=== PATIENT | male | born 1985 | race African-American/Black ===

== ENCOUNTER 2023-06-30 12:31 | Inpatient (IN) | payer OTHER ==
[2023-06-30 13:51] VITALS: BMI 24.0
[2023-06-30] MEDS ORDERED: LOPERAMIDE HCL 2 MG CAPSULE PO PRN (15:00)
[2023-06-30] MEDS ORDERED: IBUPROFEN 400 MG TABLET (FP) PO PRN (15:00)
[2023-06-30] MEDS ORDERED: BENZONATATE 200 MG CAPSULE PO PRN (15:00)
[2023-06-30] MEDS ORDERED: guaiFENesin 600 MG TABLET.ER (FP) PO PRN (15:00)
[2023-06-30] MEDS ORDERED: ACETAMINOPHEN 325 MG TABLET (FP) PO PRN (15:00)
[2023-06-30] MEDS ORDERED: NALOXONE HCL (KLOXXADO) 8 MG SPRAY NS PRN (15:00)
[2023-06-30] MEDS ORDERED: BENZOCAINE/MENTHOL (CHLORASEPTIC ) LOZENGE MM PRN (15:00)
[2023-06-30] MEDS ORDERED: POLYETHYLENE GLYCOL (HEALTHYLAX) 3350 17 GM PACKET PO PRN (15:00)
[2023-06-30] MEDS ORDERED: IBUPROFEN 600 MG TABLET (FP) PO PRN (15:00)
[2023-06-30] MEDS ORDERED: NALOXONE HCL 0.4 MG/ML VIAL IM PRN (15:00)
[2023-06-30] MEDS ORDERED: MAGNESIUM HYDROX 2400MG/30ML ORAL SUSPENSION 30 ML CUP PO PRN (15:00)
[2023-06-30] MEDS ORDERED: MAG HYDROX/AL HYDROX/SIMETH 30 ML UNIT-DOSE CUP PO PRN (15:00)
[2023-06-30] MEDS ORDERED: hydrOXYzine PAMOATE 25 MG CAPSULE (FP) PO PRN (15:00)
[2023-06-30] MEDS: PRENATAL VITAMINS W/ FOLIC ACID TABLET (FP) PO SCH (16:20)
[2023-06-30] MEDS: NICOTINE 7 MG/24 HOURS TOPICAL PATCH TD SCH (16:20)
[2023-06-30] MEDS ORDERED: NICOTINE 7 MG/24 HOURS TOPICAL PATCH TD ONE (16:31)
[2023-06-30 17:00] VITALS: TEMP 97.9
[2023-06-30] MEDS: TUBERCULIN PPD 5 TU/0.1ML SYRINGE (IN PATIENT USE ONLY) ID ONE (18:27)
[2023-06-30] MEDS: MELATONIN 5 MG TABLETS PO SCH (21:21)
[2023-06-30] MEDS: THIAMINE HCL 100 MG TABLET (FP) PO SCH (21:21)
[2023-06-30] MEDS ORDERED: TUBERCULIN PPD 5 TU/0.1ML VIAL ID ONE (22:51)
[2023-07-01 08:48] VITALS: RESP 16
[2023-07-01 11:50] LABS: URINE APPEARANCE CLEAR; URINE BILIRUBIN NEGATIVE (NEGATIVE); URINE COLOR YELLOW; URINE GLUCOSE (UA) NEGATIVE (NEGATIVE); URINE KETONE NEGATIVE (NEGATIVE); URINE LEUK ESTERASE NEGATIVE (NEGATIVE); URINE NITRITE NEGATIVE (NEGATIVE); URINE PROTEIN NEGATIVE (NEGATIVE); URINE UROBILINOGEN 0.2 mg/dL (0.2-1.0)
[2023-07-01 11:55] LABS: HEMATOCRIT 38.3 % (35.4-49); MCH 24.4 pg (25.7-33.7); MCHC 31.3 g/dl (32.0-35.9); MEAN CELL VOLUME 77.9 fl (80-96); PLATELET COUNT 272 10^3/uL (134-434); RBC 4.92 M/mm3 (4.00-5.60); RDW 14.1 % (11.9-15.9); WHITE BLOOD COUNT 5.1 K/mm3 (4.0-10.0)
[2023-07-01 11:59] LABS: POTASSIUM 4.1 mmol/L (3.5-5.1)
[2023-07-01 12:05] LABS: ALBUMIN 2.6 g/dl (3.4-5.0); BLOOD UREA NITROGEN 12.2 mg/dL (7-18); CALCIUM 8.2 mg/dL (8.5-10.1)
[2023-07-01 12:10] LABS: BILIRUBIN,TOTAL 0.5 mg/dL (0.2-1); TOT PROT 6.2 g/dl (6.4-8.2)
[2023-07-01 12:27] LABS: SYPHILIS W/ RPR CONF NON-REACTIVE (NONREACTIVE)
[2023-07-01 15:22] LABS: HIV INTERPRETATION NEGATIVE (NEGATIVE)
[2023-07-01] MEDS: QUEtiapine FUMARATE 100 MG TABLET (FP) PO SCH (21:24)
[2023-07-02] MEDS ORDERED: PRENATAL VITAMINS W/ FOLIC ACID TABLET (FP) PO PRN (12:58)
[2023-07-02] MEDS ORDERED: NICOTINE 7 MG/24 HOURS TOPICAL PATCH TD PRN (12:58)
[2023-07-03 09:12] VITALS: BP 126/89; PULSE 71
== END 2023-07-03 12:30 | disposition left against medical advice (07) | DRG 770 ==
LOC: YASAS 12:31 → Y3E 16:04
PROVIDERS: ADMIT Allergy & Immunology; ATTEND Psychiatry & Neurology Pain Medicine
PROC: HZ42ZZZ Group Counseling for Substance Abuse Treatment, Cognitive-Behavioral (ICD-10-PCS; principal; 2023-06-30)
DX: F11.20 Opioid dependence, uncomplicated (principal); F14.20 Cocaine dependence, uncomplicated; F16.24 Hallucinogen dependence with hallucinogen-induced mood disorder; F12.20 Cannabis dependence, uncomplicated; F17.210 Nicotine dependence, cigarettes, uncomplicated; F19.24 Other psychoactive substance dependence with psychoactive substance-induced mood disorder; F43.10 Post-traumatic stress disorder, unspecified; Z56.0 Unemployment, unspecified; Z59.01 Sheltered homelessness
CPT/HCPCS: 36415; 80053; 81003; 85027; 86780; 86803; 87389; 87811; 93005; 93010

== ENCOUNTER 2023-07-22 15:31 | Inpatient (IN) | payer OTHER ==
[2023-07-22 17:29] VITALS: BMI 22.8
[2023-07-22] MEDS ORDERED: IBUPROFEN 400 MG TABLET (FP) PO PRN (21:33)
[2023-07-22] MEDS ORDERED: BENZOCAINE/MENTHOL (CHLORASEPTIC ) LOZENGE MM PRN (21:33)
[2023-07-22] MEDS ORDERED: MAGNESIUM HYDROX 2400MG/30ML ORAL SUSPENSION 30 ML CUP PO PRN (21:33)
[2023-07-22] MEDS ORDERED: MAG HYDROX/AL HYDROX/SIMETH 30 ML UNIT-DOSE CUP PO PRN (21:33)
[2023-07-22] MEDS ORDERED: ACETAMINOPHEN 325 MG TABLET (FP) PO PRN (21:33)
[2023-07-22] MEDS ORDERED: IBUPROFEN 600 MG TABLET (FP) PO PRN (21:33)
[2023-07-22] MEDS ORDERED: NICOTINE POLACRILEX 4 MG GUM BUC PRN (21:33)
[2023-07-22] MEDS ORDERED: NALOXONE HCL 0.4 MG/ML VIAL IM PRN (21:33)
[2023-07-22] MEDS ORDERED: NALOXONE HCL (KLOXXADO) 8 MG SPRAY NS PRN (21:33)
[2023-07-22] MEDS ORDERED: BENZONATATE 200 MG CAPSULE PO PRN (21:33)
[2023-07-22] MEDS ORDERED: LOPERAMIDE HCL 2 MG CAPSULE PO PRN (21:33)
[2023-07-22] MEDS ORDERED: guaiFENesin 600 MG TABLET.ER (FP) PO PRN (21:33)
[2023-07-22] MEDS ORDERED: POLYETHYLENE GLYCOL (HEALTHYLAX) 3350 17 GM PACKET PO PRN (21:33)
[2023-07-22] MEDS: THIAMINE 100 MG TABLET PO SCH (22:27)
[2023-07-22] MEDS: MELATONIN 5 MG TABLETS PO SCH (22:27)
[2023-07-23] MEDS ORDERED: TUBERCULIN PPD 5 TU/0.1ML SYRINGE (IN PATIENT USE ONLY) ID ONE (01:34)
[2023-07-23] MEDS: TUBERCULIN PPD 5 TU/0.1ML SYRINGE (IN PATIENT USE ONLY) ID ONE (10:30)
[2023-07-23] MEDS: PRENATAL VITAMINS W/ FOLIC ACID TABLET (FP) PO SCH (10:30)
[2023-07-23] MEDS: NICOTINE 21 MG/24 HOURS TOPICAL PATCH TD SCH (10:31)
[2023-07-23 11:37] LABS: HEMATOCRIT 38.2 % (35.4-49); HEMOGLOBIN 12.2 GM/dL (11.7-16.9); MCH 24.8 pg (25.7-33.7); MCHC 32.1 g/dl (32.0-35.9); MEAN CELL VOLUME 77.5 fl (80-96); MEAN PLT VOLUME 8.8 fl (7.5-11.1); PLATELET COUNT 263 10^3/uL (134-434); RBC 4.93 M/mm3 (4.00-5.60); RDW 14.7 % (11.9-15.9); WHITE BLOOD COUNT 3.7 K/mm3 (4.0-10.0)
[2023-07-23 12:49] LABS: CHLORIDE 110 mmol/L (98-107); POTASSIUM 4.1 mmol/L (3.5-5.1); SODIUM 145 mmol/L (136-145)
[2023-07-23 12:51] LABS: ANION GAP 7 mmol/L (4-13); BLOOD UREA NITROGEN 11.2 mg/dL (7-18); CALCIUM 8.5 mg/dL (8.5-10.1); CO2 28 mmol/L (21-32)
[2023-07-23 12:52] LABS: ALBUMIN 2.8 g/dl (3.4-5.0); GLUCOSE,RANDOM 91 mg/dL (74-106)
[2023-07-23 12:54] LABS: SGPT/ALT 42 U/L (13-61)
[2023-07-23 12:55] LABS: CREATININE 0.9 mg/dL (0.55-1.3); SGOT/AST 86 U/L (15-37)
[2023-07-23 12:56] LABS: BILIRUBIN,TOTAL 0.6 mg/dL (0.2-1); TOT PROT 6.2 g/dl (6.4-8.2)
[2023-07-23 12:57] LABS: ALK PHOS 47 U/L (45-117)
[2023-07-24 15:09] LABS: PH,URINE 6.5 (5.0-8.0); URINE APPEARANCE CLEAR; URINE BILIRUBIN NEGATIVE (NEGATIVE); URINE COLOR YELLOW; URINE GLUCOSE (UA) NEGATIVE (NEGATIVE); URINE KETONE NEGATIVE (NEGATIVE); URINE LEUK ESTERASE NEGATIVE (NEGATIVE); URINE NITRITE NEGATIVE (NEGATIVE); URINE PROTEIN NEGATIVE (NEGATIVE)
[2023-07-26] MEDS: hydrOXYzine PAMOATE 25 MG CAPSULE (FP) PO PRN (21:43)
[2023-08-02] MEDS: QUEtiapine FUMARATE 100 MG TABLET (FP) PO SCH (21:41)
[2023-08-05 07:17] VITALS: BP 109/67; PULSE 72; RESP 17; TEMP 97.6
== END 2023-08-05 10:37 | disposition home or self-care (01) | DRG 772 ==
LOC: YASAS 15:31 → Y3NR 20:50 → Y5N 07-23 14:18
PROVIDERS: ADMIT Allergy & Immunology; ATTEND Psychiatry & Neurology Pain Medicine
PROC: HZ42ZZZ Group Counseling for Substance Abuse Treatment, Cognitive-Behavioral (ICD-10-PCS; principal; 2023-07-22)
DX: F14.20 Cocaine dependence, uncomplicated (principal); F12.20 Cannabis dependence, uncomplicated; F17.210 Nicotine dependence, cigarettes, uncomplicated; F41.9 Anxiety disorder, unspecified; F32.A Depression, unspecified; F43.10 Post-traumatic stress disorder, unspecified; G47.00 Insomnia, unspecified; Z56.0 Unemployment, unspecified; Z59.01 Sheltered homelessness
CPT/HCPCS: 36415; 80053; 80305; 80307; 81003; 85027; 86780; 93005; 93010